=== PATIENT | female | born 1990 | race African-American/Black ===

== ENCOUNTER 2019-01-22 21:44 | Emergency (ER) | payer OTHER ==
[~2019-01-22] VITALS: Ht 165.1 cm; Wt 87.1 kg
[~2019-01-22 21:44] MED LIST: HYDROXYZINE HCL25 M1 PO; OCELLA TABLET1 EACH; PREDNISONE50 MG PO; ZOFRAN ODT4 MG PO
[2019-01-22] MEDS ORDERED: SYEDA 28 TABLE1 EACH PO (21:54)
[2019-01-22] MEDS ORDERED: NABUMETONE 750750 M1 PO (22:47)
[2019-01-22 23:19] VITALS: BP 137/90
== END 2019-01-22 23:21 | disposition home or self-care (01) ==
LOC: M.ERS 21:44
DX: S93.492A Sprain of other ligament of left ankle, initial encounter (principal); S93.692A Other sprain of left foot, initial encounter; W10.9XXA Fall (on) (from) unspecified stairs and steps, initial encounter; Y92.89 Other specified places as the place of occurrence of the external cause; Y93.89 Activity, other specified; Y99.8 Other external cause status

== ENCOUNTER 2020-09-18 10:15 | Emergency (ER) | payer OTHER ==
[~2020-09-18] VITALS: Ht 165.1 cm; Wt 98.4 kg
[~2020-09-18 10:15] MED LIST changes: +NABUMETONE 750750 M1 PO; +SYEDA 28 TABLE1 EACH PO
[2020-09-18] MEDS ORDERED: ONE-DAILY MULT1 EAC1 PO (10:27)
[2020-09-18 10:52] LABS: URINE BILIRUBIN NEGATIVE (Negative); URINE BLOOD TRACE (Negative); URINE CLARITY CLEAR; URINE COLOR YELLOW; URINE GLUCOSE-RANDOM NEGATIVE (Negative); URINE KETONES 2+ (Negative); URINE LEUKOCYTES-REFLEX NEGATIVE (Negative); URINE NITRITE-REFLEX NEGATIVE (Negative); URINE PROTEIN NEGATIVE (Negative); URINE SPECIFIC GRAVITY 1.025 (1.005-1.030); URINE UROBILINOGEN 0.2 E.U./dl (0.2-1.0)
[2020-09-18] MEDS ORDERED: NORCO 5-325 TA1 EAC2 PO (11:33)
[2020-09-18 11:55] VITALS: BP 128/77
== END 2020-09-18 12:00 | disposition home or self-care (01) ==
LOC: M.ERS 10:15
PROVIDERS: Emergency Medicine Emergency Medical Services
DX: S93.402A Sprain of unspecified ligament of left ankle, initial encounter (principal); S93.602A Unspecified sprain of left foot, initial encounter; Z79.899 Other long term (current) drug therapy; W18.49XA Other slipping, tripping and stumbling without falling, initial encounter; Y93.89 Activity, other specified; Y92.89 Other specified places as the place of occurrence of the external cause; Y99.8 Other external cause status